=== PATIENT | male | born 1975 | race Caucasian/White ===

== ENCOUNTER 2016-07-16 17:36 | Emergency (ER) | payer SELFPAY ==
[~2016-07-16] VITALS: Ht 162.6 cm; Wt 58.0 kg
[~2016-07-16 17:36] MED LIST: PAXIL PO; SEROQUEL PO
[2016-07-16 17:41] VITALS: Ht 162.6 cm; Wt 58.0 kg
== END 2016-07-16 21:21 | disposition left against medical advice (07) ==
LOC: E/R 17:36
DX: Z53.21 Procedure and treatment not carried out due to patient leaving prior to being seen by health care provider (principal)